=== PATIENT | female | born 1985 | race African-American/Black ===

== ENCOUNTER 2016-06-19 00:08 | Emergency (ER) | payer SELFPAY ==
[2016-01-10 10:44] VITALS: BP 159/101
[~2016-06-19] VITALS: Ht 167.6 cm; Wt 136.1 kg
[~2016-06-19 00:08] MED LIST: AMOX1TAB61 PO
[2016-06-19] MEDS ORDERED: CYCL10TA2 PO (00:44)
[2016-06-19] MEDS ORDERED: HYDR-971 PO (00:44)
--- NOTE | 2016-06-19 00:44 | PHYS DOC ---
Past Medical History Past Medical History: No Pertinent History Past Surgical History: Other Additional Past Surgical Histo: SPLEENECTOMY Alcohol Use: None Drug Use: None Adult General Chief Complaint Chief Complaint: BACK PAIN OR INJURY HPI HPI Patient is a 30 year old female who presents with moderate left low back pain radiating to the left lower extremity that began 3 days ago after she moved a TV. Patient denies any loss of bowel bladder function. Denies any numbness or tingling to bilateral lower extremities. Patient denies any urgency frequency or dysuria. Review of Systems Review of Systems Constitutional: Denies fever or chills [] Eyes: Denies change in visual acuity, redness, or eye pain [] : Denies dysuria or hematuria [] Musculoskeletal: Left low back pain Integument: Denies rash or skin lesions [] Neurologic: Denies headache, focal weakness or sensory changes [] Endocrine: Denies polyuria or polydipsia [] Allergies Allergies Allergies Coded Allergies Type Severity Reaction Last Updated Verified ibuprofen Allergy Unknown 06/09/15 Yes Physical Exam Physical Exam Constitutional: Well developed, well nourished, no acute distress, non-toxic appearance. [] Abdomen: Bowel sounds normal, soft, no tenderness, no masses, no pulsatile masses. [] Skin: Warm, dry, no erythema, no rash. [] Back: Overweight patient. Diffuse tenderness paraspinal muscles of the left lower lumbar region worse on the left SI joint, no midline tenderness, no CVA tenderness. Positive left leg straight raises, negative right leg straight raises. Extremities: No tenderness, no cyanosis, no clubbing, ROM intact, no edema. [] Neurologic: Alert and oriented X 3, normal motor function, normal sensory function, no focal deficits noted. [] Psychologic: Affect normal, judgement normal, mood normal. [] EKG EKG [] Radiology/Procedures Radiology/Procedures [] Course & Med Decision Making Course & Med Decision Making Pertinent Labs and Imaging studies reviewed. (See chart for details) Patient is in the ED with left low back pain radiating to the left lower extremity that began 3 days ago after moving a TV. She does not have any loss of bowel/bladder function. Her pain is very muscle skeletal most likely lumbar strain. She was discharged with pain medicine. Heat recommended to her back. Follow-up with her own PCP in one week. She is provided return precautions and discharged in stable condition. Leroy Weinerimer Dragon Disclaimer This electronic medical record was generated, in whole or in part, using a voice recognition dictation system. Departure Departure Impression: Primary Impression: Lumbosacral strain Additional Impression: Sciatica of left side Disposition: HOME, SELF-CARE Condition: STABLE Referrals: NO PCP (PCP) Follow-up with your own doctor in one week Patient Instructions: Lumbosacral Strain, Sciatica with [facility] Additional Instructions: You were seen for strain of the lumbar spine. Avoid lifting anything heavy for the next 7 days. Apply heat or ice to the low back. Take the prescribed medicines as ordered. Come back to the emergency room for any concerning or worsening symptoms. Follow-up with your own doctor in one week. Scripts Cyclobenzaprine Hcl 10 Mg Tablet1 Tab PO TID #30 TAB Prov:KALEB GALVAN APRN 06/19/16 Hydrocodone/Apap 5-325 (Max 5-325 Tablet)1 Each Tablet1-2 Tab PO Q4-6HRS #20 TAB Prov:KALEB GALVAN APRN 06/19/16 Problem Qualifiers Primary Impression: Lumbosacral strain Encounter type: initial encounter Qualified Code: S39.012A - Strain of muscle, fascia and tendon of lower back, initial encounter KALEB GALVAN APRN Jun 19, 2016 00:44
[2016-06-19] MEDS ORDERED: CYCLOBENZAPRINE 10 MG TABLET. PO ONE (00:45)
[2016-06-19] MEDS ORDERED: HYDROCODONE/APAP 5/325MG TABLET. PO ONE (00:45)
== END 2016-06-19 00:50 | disposition home or self-care (01) ==
LOC: ER 00:08
DX: S39.012A Strain of muscle, fascia and tendon of lower back, initial encounter (principal); M54.32 Sciatica, left side; Z88.6 Allergy status to analgesic agent; X58.XXXA Exposure to other specified factors, initial encounter; Y93.89 Activity, other specified; Y99.8 Other external cause status; Y92.89 Other specified places as the place of occurrence of the external cause
CPT/HCPCS: 99283

== ENCOUNTER 2017-06-23 00:02 | Emergency (ER) | payer SELFPAY | END 2017-06-23 01:02 | disposition home or self-care (01) | LOC: ER 00:02 | DX: S93.402A Sprain of unspecified ligament of left ankle, initial encounter (principal); I10 Essential (primary) hypertension; Z88.6 Allergy status to analgesic agent; X58.XXXA Exposure to other specified factors, initial encounter; Y93.01 Activity, walking, marching and hiking; Y92.69 Other specified industrial and construction area as the place of occurrence of the external cause; Y99.8 Other external cause status | CPT/HCPCS: 73610; 99284 ==

== ENCOUNTER 2017-10-16 23:01 | Emergency (ER) | payer SELFPAY ==
[2017-10-16] MEDS: KETOROLAC 30 MG/ML INJ. IV (23:45)
[2017-10-16] MEDS: IV NORMAL SALINE 1000ML BAG 1,000 ML IV (23:45)
[2017-10-16 23:55] LABS: URINE HCG POC HCG NEGATIVE (Negative)
[2017-10-17] LABS: BILIRUBIN,URINE NEGATIVE (NEG); CLARITY,URINE CLEAR; COLOR,URINE YELLOW; GLUCOSE,URINE NEGATIVE (NEG); NITRITE,URINE NEGATIVE (NEG); PH,URINE 5.5; PROTEIN,URINE NEGATIVE (NEG-TRACE); UROBILINOGEN,URINE 0.2 mg/dL (0.2 mg/dL)
[2017-10-17 00:10] LABS: BACTERIA,URINE FEW /HPF (0-FEW); RBC,URINE OCC /HPF (0-2); SQUAMOUS EPITHELIAL CELL,UR FEW /LPF; WBC,URINE OCC /HPF (0-4)
[2017-10-17] MEDS: KETOROLAC 60 MG/2 ML INJ. IM (00:39)
== END 2017-10-17 00:45 | disposition home or self-care (01) ==
LOC: ER 10-17 00:45
DX: R10.9 Unspecified abdominal pain (principal); R11.2 Nausea with vomiting, unspecified; I10 Essential (primary) hypertension; E66.01 Morbid (severe) obesity due to excess calories; Z68.42 Body mass index [BMI] 45.0-49.9, adult; Z88.6 Allergy status to analgesic agent
CPT/HCPCS: 74176; 81001; 81025; 96372; 99285-25; J1885

== ENCOUNTER 2018-08-23 10:27 | Emergency (ER) | payer SELFPAY ==
[~2018-08-23] VITALS: Ht 167.6 cm; Wt 136.1 kg
[~2018-08-23 10:27] MED LIST changes: +CYCL10TA2 PO; +HYDR-3164 PO; +NAPR-514 PO
[2018-08-23] MEDS ORDERED: HYDROcodone/APAP 5/325MG 1 TAB TABLET PO ONE (11:30)
[2018-08-23] MEDS ORDERED: diazePAM 5 MG TABLET PO ONE (11:30)
[2018-08-23] MEDS ORDERED: cloNIDine HCL 0.1 MG TABLET PO ONE (11:30)
--- NOTE | 2018-08-23 11:56 | PHYS DOC ---
Past Medical History Past Medical History: Hypertension, Other Additional Past Medical Histor: tbi Past Surgical History: Other Additional Past Surgical Histo: SPLEENECTOMY, l shoulder Alcohol Use: None Drug Use: None Adult General Chief Complaint Chief Complaint: LOWER BACK PAIN OR INJURY HPI HPI Patient is a 32 year old female with a history of obesity, hypertension, who presents to the ED today complaining of 10 out of 10 left-sided back pain that has been going on since yesterday, patient states she believes she slept wrong. Patient states the pain is exacerbated by movements to the left side. Denies anything specifically relieving the pain. She states she has not tried anything specifically for this pain. She is also complaining of a headache rated at 10 out of 10 but not the worst headache in her life, she states this headache has been going on for the last 1 month. She states she has history of migraine headaches. She also has history of hypertension and states has not taken her medications for "years". Patient denies any chest pain or shortness of breath. Denies anything relieving or exacerbating the headache. She states she does not have insurance has no PCP has never follows up with anyone for high blood pressure. Review of Systems Review of Systems Constitutional: Denies fever or chills [] Eyes: Denies change in visual acuity, redness, or eye pain [] HENT: Denies nasal congestion or sore throat [] Respiratory: Denies cough or shortness of breath [] Cardiovascular: No additional information not addressed in HPI [] GI: Denies abdominal pain, nausea, vomiting, bloody stools or diarrhea [] : Denies dysuria or hematuria [] Musculoskeletal: Reports left-sided pain Integument: Denies rash or skin lesions [] Neurologic: Reports headache, denies focal weakness or sensory changes [] All other systems were reviewed and found to be within normal limits, except as documented in this note. Current Medications Current Medications Current Medications Medications (Trade) Dose Ordered Sig/Fermin Start Time Stop Time Status Last Admin Dose Admin Acetaminophen/ Hydrocodone Bitart (Lortab 5/325) 2 tab 1X ONCE 08/23/18 11:30 08/23/18 11:34 DC 08/23/18 11:47 2 TAB Clonidine HCl (Catapres) 0.1 mg 1X ONCE 08/23/18 11:30 08/23/18 11:34 DC 08/23/18 11:46 0.1 MG Diazepam (Valium) 5 mg 1X ONCE 08/23/18 11:30 08/23/18 11:34 DC 08/23/18 11:43 5 MG Allergies Allergies Allergies Coded Allergies Type Severity Reaction Last Updated Verified ibuprofen Adverse Reaction Mild UPSET STOMACH 10/16/17 Yes Physical Exam Physical Exam Constitutional: Morbidly obese patient. Well developed, well nourished, no acute distress, non-toxic appearance. [] HENT: Normocephalic, atraumatic, bilateral external ears normal, oropharynx moist, no oral exudates, nose normal. [] Eyes: PERRLA, EOMI, conjunctiva normal, no discharge. [] Neck: Normal range of motion, no tenderness, supple, no stridor. [] Cardiovascular:Heart rate regular rhythm, no murmur [] Lungs & Thorax: Bilateral breath sounds clear to auscultation [] Abdomen: Bowel sounds normal, soft, no tenderness, no masses, no pulsatile masses. [] Skin: Warm, dry, no erythema, no rash. [] Back: No tenderness, no CVA tenderness. [] Extremities: No tenderness, no cyanosis, no clubbing, ROM intact, no edema. [] Neurologic: Alert and oriented X 3, normal motor function, normal sensory function, no focal deficits noted. Cranial nerves II through XII intact Psychologic: Affect normal, judgement normal, mood normal. [] Current Patient Data Vital Signs Vital Signs Date Time Temp Pulse Resp B/P (MAP) Pulse Ox O2 Delivery O2 Flow Rate FiO2 08/23/18 12:14 73 16 175/117 (136) 100 Room Air 08/23/18 11:30 97.9 97.9 EKG EKG [] Radiology/Procedures Radiology/Procedures [] Course & Med Decision Making Course & Med Decision Making Pertinent Labs and Imaging studies reviewed. (See chart for details) This is a 32-year-old female patient presenting to the ED today complaining of pain to her left side of the body that has been going on since yesterday, she believes she slept wrong. Patient is in no distress. She is also complaining of a headache, she believes is a migraine headache, has history of hypertension that is uncontrolled, blood pressure not arrival 173/119 with a heart rate of 84. Discussed with patient blood pressure management. She states she would like to be restarted back on her blood pressure medication. She was started on HCTZ and she is morbidly obese, recommended she tries to diet and exercise and lose some weight. She was discharged with diclofenac and cyclobenzaprine for pain. Provided a clinic list for follow-up. Leroy Disclaimer Makon Disclaimer This electronic medical record was generated, in whole or in part, using a voice recognition dictation system. Departure Departure Impression: Primary Impression: Musculoskeletal pain Additional Impressions: Hypertension Headache Disposition: HOME, SELF-CARE Condition: STABLE Referrals: NO PCP (PCP) follow up with a doctor from the list provided Patient Instructions: Headache, FAQs, Hypertension Additional Instructions: You were evaluated in the emergency room, your blood pressure was elevated, you have history of high blood pressure. Please establish care with one of the doctors from the list provided and follow-up. We put you on hydrochlorothiazide. Take it as prescribed. Consider losing weight, watch your diet and avoid eating fatty salty foods. Scripts Ondansetron (ONDANSETRON ODT) 4 Mg Tab.rapdis 1 TAB PO PRN Q6-8HRS, #16 TAB Prov: KLAEB GALVAN APRN 08/23/18 Diclofenac Sodium (DICLOFENAC SODIUM) 50 Mg Tablet.dr 1 TAB PO BID, #20 TAB 0 Refills Prov: KALEB GALVAN APRN 08/23/18 Hydrochlorothiazide (HYDROCHLOROTHIAZIDE TABLET) 12.5 Mg Tablet 12.5 MG PO DAILY for DIURETIC, #20 TAB 0 Refills Prov: KALEB GALVAN APRN 08/23/18 Cyclobenzaprine Hcl (CYCLOBENZAPRINE HCL) 10 Mg Tablet 1 TAB PO TID, #30 TAB Prov: KALEB GALVAN APRN 08/23/18 Problem Qualifiers Additional Impressions: Hypertension Hypertension type: unspecified Qualified Codes: I10 - Essential (primary) hypertension Headache Headache type: unspecified Headache chronicity pattern: unspecified pattern Intractability: not intractable Qualified Codes: R51 - Headache COLEKALEB APRN Aug 23, 2018 11:56
[2018-08-23] MEDS ORDERED: ONDA4TAB12 PO (12:50)
[2018-08-23] MEDS ORDERED: CYCL10TA2 PO (12:50)
[2018-08-23] MEDS ORDERED: DICL50TA4 PO (12:50)
[2018-08-23] MEDS ORDERED: HYDR12.58 PO (12:50)
[2018-08-23 13:09] VITALS: BP 163/101
== END 2018-08-23 13:09 | disposition home or self-care (01) ==
LOC: ER 10:27
DX: I10 Essential (primary) hypertension (principal); R51 Headache; M79.18 Myalgia, other site; Z88.8 Allergy status to other drugs, medicaments and biological substances; Z90.81 Acquired absence of spleen
CPT/HCPCS: 99284

== ENCOUNTER 2019-09-29 08:21 | Emergency (ER) | payer SELFPAY ==
[~2019-09-29] VITALS: Ht 170.2 cm; Wt 140.0 kg
[~2019-09-29 08:21] MED LIST changes: +DICL50TA4 PO; +HYDR12.58 PO; +ONDA4TAB12 PO
--- NOTE | 2019-09-29 08:46 | PHYS DOC ---
Past Medical History Past Medical History: Hypertension, Other Additional Past Medical Histor: tbi Past Surgical History: Other Additional Past Surgical Histo: SPLEENECTOMY, l shoulder Smoking Status: Current Every Day Smoker Alcohol Use: None Drug Use: None General Adult EDM: Chief Complaint: ABDOMINAL PAIN HPI: HPI: Patient is a 33-year-old obese female who presents with a complaint of low abdominal pain and cramping. She states it feels like her menstrual period. She also has dysuria as well. She denies any fever chills or sweats. She is had no nausea or vomiting. No diarrhea. She states the pain is localized to her lower abdomen feels like cramping and she says it is worse when she lays down. [] Review of Systems: Review of Systems: Constitutional: Denies fever or chills. [] Eyes: Denies change in visual acuity. [] HENT: Denies nasal congestion or sore throat. [] Respiratory: Denies cough or shortness of breath. [] Cardiovascular: Denies chest pain or edema. [] GI: Per HPI [] : Reports dysuria. [] Musculoskeletal: Denies back pain or joint pain. [] Integument: Denies rash. [] Neurologic: Denies headache, focal weakness or sensory changes. [] Endocrine: Denies polyuria or polydipsia. [] Lymphatic: Denies swollen glands. [] Psychiatric: Denies depression or anxiety. [] Heart Score: Risk Factors: Risk Factors: DM, Current or recent (<one month) smoker, HTN, HLP, family history of CAD, obesity. Risk Scores: Score 0 - 3: 2.5% MACE over next 6 weeks - Discharge Home Score 4 - 6: 20.3% MACE over next 6 weeks - Admit for Clinical Observation Score 7 - 10: 72.7% MACE over next 6 weeks - Early Invasive Strategies Allergies: Allergies: Allergies Coded Allergies Type Severity Reaction Last Updated Verified ibuprofen Adverse Reaction Mild UPSET STOMACH 10/16/17 Yes Physical Exam: PE: Constitutional: Well developed, well nourished, no acute distress, non-toxic appearance. [] HENT: Normocephalic, atraumatic, bilateral external ears normal, oropharynx moist, no oral exudates, nose normal. [] Eyes: PERRLA, EOMI, conjunctiva normal, no discharge. [] Neck: Normal range of motion, no tenderness, supple, no stridor. [] Cardiovascular:Heart rate regular rhythm, no murmur [] Lungs & Thorax: Bilateral breath sounds clear to auscultation [] Abdomen: Bowel sounds normal, soft, no tenderness, no masses, no pulsatile masses. [] Skin: Warm, dry, no erythema, no rash. [] Back: No tenderness, no CVA tenderness. [] Extremities: No tenderness, no cyanosis, no clubbing, ROM intact, no edema. [] Neurologic: Alert and oriented X 3, normal motor function, normal sensory function, no focal deficits noted. [] Psychologic: Affect normal, judgement normal, mood normal. [] Current Patient Data: Labs: Laboratory Tests Test 09/29/19 08:39 POC Urine HCG, Qualitative Hcg negative (Negative) EKG: EKG: [] Radiology/Procedures: Radiology/Procedures: []PROCEDURE: CT ABD PELV W/ IV CONTRST ONLY CT abdomen and pelvis with contrast History: Abdominal pain Technique: After the administration of intravenous contrast, CT imaging was performed of the abdomen and pelvis. No oral contrast was given as per request. Multiplanar images are reviewed. Exposure: One or more of the following individualized dose reduction techniques were utilized for this examination: 1. Automated exposure control 2. Adjustment of the mA and/or kV according to patient size 3. Use of iterative reconstruction technique. Comparison: October 17, 2017 Findings: Visualized heart is enlarged. There is air-fluid level of the distal esophagus, present previously. There is again inferior vena cava filter. Both kidneys enhance, no hydronephrosis of either kidney. There are probably some tiny superior left renal calculi up to about 2 mm. Gallbladder is present without obvious intraluminal abnormality by CT. No new focal abnormality is identified of the liver or pancreas. 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 Appendix caliber is upper limits of normal at 6 mm although unchanged, no adjacent inflammatory change. There are some nonspecific air-fluid levels in the small bowel most notable of the left abdomen. There is variable small bowel wall thickening including of the more distal small bowel. Bowel is not significantly dilated. There is no free air. There is trace dependent free fluid in the right pelvis. There is multilevel lumbar degenerative disc disease. There is mild S-shaped scoliosis of the thoracolumbar spine. Impression: 1. There is variable small bowel wall thickening and air-fluid levels, evidence of enteritis. There is no CT evidence of acute appendicitis. 2. There are some small nonobstructive left renal calculi superiorly. 3. Heart is enlarged. Course & Med Decision Making: Course & Med Decision Making Pertinent Labs and Imaging studies reviewed. (See chart for details) [ED course: Evaluation reveals an obese 33-year-old female with lower abdominal discomfort. CT scan showed mild enteritis nothing emergent for sure. She was given IV fluids Toradol and some fentanyl with improvement in her symptoms. I will give her some naproxen to take at home. I have encouraged her to follow with her primary care physician.] Leroy Disclaimer: Leroy Disclaimer: This electronic medical record was generated, in whole or in part, using a voice recognition dictation system. Departure Departure Impression: Primary Impression: Abdominal pain Qualified Codes: R10.30 - Lower abdominal pain, unspecified Disposition: HOME, SELF-CARE Condition: IMPROVED Referrals: NO PCP (PCP) Patient Instructions: Abdominal Pain (Nonspecific) Additional Instructions: Return to the emergency department with any new or concerning symptoms Scripts Naproxen (NAPROXEN) 500 Mg Tablet 1 TAB PO BID PRN for PAIN, #30 TAB 1 Refill Prov: WILLIAM GROSS DO 09/29/19 WILLIAM GROSS DO September 29, 2019 08:46
[2019-09-29 09:07] LABS: BILIRUBIN,URINE NEGATIVE (NEG); CLARITY,URINE CLEAR; COLOR,URINE YELLOW; NITRITE,URINE NEGATIVE (NEG); PH,URINE 5.5 (<5.0-8.0); UROBILINOGEN,URINE 0.2 mg/dL (0.2 mg/dL)
[2019-09-29 09:27] LABS: RBC,URINE 0 /HPF (0-2)
[2019-09-29 09:28] LABS: BACTERIA,URINE 0 /HPF (0-FEW); HYALINE CASTS, URINE FEW /HPF; SQUAMOUS EPITHELIAL CELL,UR MOD /LPF; WBC,URINE OCC /HPF (0-4)
[2019-09-29] MEDS ORDERED: KETOROLAC 60 MG/2 ML VIAL. IM ONE (09:30)
[2019-09-29 09:36] LABS: PROTEIN,URINE 100 mg/dL (NEG-TRACE)
[2019-09-29] MEDS ORDERED: IV NORMAL SALINE 1000ML BAG 1,000 ML IV ONE (10:00)
[2019-09-29] MEDS ORDERED: ONDANSETRON PF 4 MG/2 ML VIAL. IV ONE (10:00)
[2019-09-29] MEDS ORDERED: fentaNYL PF VIAL 100 MCG/2 ML VIAL IV ONE (10:00)
[2019-09-29 10:31] LABS: BASO % 0 % (0-3); EOS # 0.1 x10^3/uL (0.0-0.7); EOS % 1 % (0-3); HEMATOCRIT 47.9 % (36.0-47.0); HEMOGLOBIN 16.5 g/dL (12.0-15.5); LYMPH # 1.4 x10^3/uL (1.0-4.8); LYMPH % 14 % (24-48); MEAN CORPUSCULAR HEMOGLOBIN 30 pg (25-35); MEAN CORPUSCULAR HGB CONC 35 g/dL (31-37); MEAN CORPUSCULAR VOLUME 87 fL (79-100); MONO # 0.8 x10^3/uL (0.0-1.1); MONO % 8 % (0-9); NEUT # 7.8 x10^3/uL (1.8-7.7); NEUT % 77 % (31-73); PLATELET COUNT 444 x10^3/uL (140-400); RED BLOOD COUNT 5.49 x10^6/uL (3.50-5.40); WHITE BLOOD COUNT 10.1 x10^3/uL (4.0-11.0)
[2019-09-29 10:58] LABS: CALCIUM 8.5 mg/dL (8.5-10.1); GFR 76.8; POTASSIUM 3.8 mmol/L (3.5-5.1)
[2019-09-29 11:04] LABS: ALBUMIN 3.3 g/dL (3.4-5.0); ALBUMIN/GLOBULIN RATIO 0.7 (1.0-1.7); TOTAL BILIRUBIN 1.2 mg/dL (0.2-1.0); TOTAL PROTEIN 8.1 g/dL (6.4-8.2)
[2019-09-29] MEDS ORDERED: IOHEXOL 300 MG/ML 100ML VIAL. IV ONE (11:30)
[2019-09-29] MEDS ORDERED: CONTRAST GIVEN. MC PRN (11:30)
--- NOTE | 2019-09-29 11:59 | RAD ---
CT abdomen and pelvis with contrast History: Abdominal pain Technique: After the administration of intravenous contrast, CT imaging was performed of the abdomen and pelvis. No oral contrast was given as per request. Multiplanar images are reviewed. Exposure: One or more of the following individualized dose reduction techniques were utilized for this examination: 1. Automated exposure control 2. Adjustment of the mA and/or kV according to patient size 3. Use of iterative reconstruction technique. Comparison: October 17, 2017 Findings: Visualized heart is enlarged. There is air-fluid level of the distal esophagus, present previously. There is again inferior vena cava filter. Both kidneys enhance, no hydronephrosis of either kidney. There are probably some tiny superior left renal calculi up to about 2 mm. Gallbladder is present without obvious intraluminal abnormality by CT. No new focal abnormality is identified of the liver or pancreas. 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 Appendix caliber is upper limits of normal at 6 mm although unchanged, no adjacent inflammatory change. There are some nonspecific air-fluid levels in the small bowel most notable of the left abdomen. There is variable small bowel wall thickening including of the more distal small bowel. Bowel is not significantly dilated. There is no free air. There is trace dependent free fluid in the right pelvis. There is multilevel lumbar degenerative disc disease. There is mild S-shaped scoliosis of the thoracolumbar spine. Impression: 1. There is variable small bowel wall thickening and air-fluid levels, evidence of enteritis. There is no CT evidence of acute appendicitis. 2. There are some small nonobstructive left renal calculi superiorly. 3. Heart is enlarged. Electronically signed by: Sudhir Saxena MD (09/29/2019 11:57 AM) [id number]
[2019-09-29 12:02] VITALS: BP 168/99
[2019-09-29] MEDS ORDERED: NAPR-514 PO (12:28)
== END 2019-09-29 12:39 | disposition home or self-care (01) ==
LOC: ER 08:21
DX: R10.30 Lower abdominal pain, unspecified (principal); R30.0 Dysuria; I10 Essential (primary) hypertension; F17.200 Nicotine dependence, unspecified, uncomplicated; Z88.8 Allergy status to other drugs, medicaments and biological substances
CPT/HCPCS: 36415; 74177; 80053; 81001; 81025; 83690; 85025; 96372; 96374; 96375; 99285; J1885; J2405; J3010; J7030; Q9967

== ENCOUNTER 2020-06-10 02:20 | Emergency (ER) | payer SELFPAY ==
[~2020-06-10] VITALS: Ht 170.2 cm; Wt 159.1 kg
[2020-06-10] MEDS ORDERED: CEPH500T PO (02:42)
--- NOTE | 2020-06-10 02:42 | PHYS DOC ---
Past Medical History Past Medical History: Hypertension, Other Additional Past Medical Histor: tbi Past Surgical History: Other Additional Past Surgical Histo: SPLEENECTOMY, l shoulder Smoking Status: Current Every Day Smoker Alcohol Use: Occasionally Drug Use: None General Adult EDM: Chief Complaint: INSECT BITE HPI: HPI: Patient is a 34 year old female who presented to ER for evaluation of an insect bite to the right hand she noted yesterday.. Patient says she woke up from sleep yesterday, noted a small lesion on her right hand, tender to touch, she suspected that something bit her on the right hand. Patient denies any fever. Patient denies any fall. Review of Systems: Review of Systems: Constitutional: Denies fever or chills. [] Eyes: Denies change in visual acuity. [] HENT: Denies nasal congestion or sore throat. [] Respiratory: Denies cough or shortness of breath. [] Cardiovascular: Denies chest pain or edema. [] GI: Denies abdominal pain, nausea, vomiting, bloody stools or diarrhea. [] : Denies dysuria. [] Musculoskeletal: Denies back pain or joint pain. [] Integument: positive for rash Neurologic: Denies headache, focal weakness or sensory changes. [] Endocrine: Denies polyuria or polydipsia. [] Lymphatic: Denies swollen glands. [] Psychiatric: Denies depression or anxiety. [] Heart Score: Risk Factors: Risk Factors: DM, Current or recent (<one month) smoker, HTN, HLP, family history of CAD, obesity. Risk Scores: Score 0 - 3: 2.5% MACE over next 6 weeks - Discharge Home Score 4 - 6: 20.3% MACE over next 6 weeks - Admit for Clinical Observation Score 7 - 10: 72.7% MACE over next 6 weeks - Early Invasive Strategies Current Medications: Current Medications Medications (Trade) Dose Ordered Sig/Fermin Start Time Stop Time Status Last Admin Dose Admin Cephalexin HCl (Keflex) 1,000 mg 1X ONCE 06/10/20 03:00 06/10/20 03:01 Allergies: Allergies: Allergies Coded Allergies Type Severity Reaction Last Updated Verified ibuprofen Adverse Reaction Mild UPSET STOMACH 10/16/17 Yes Physical Exam: PE: Constitutional: Well developed, well nourished, no acute distress, non-toxic appearance. [] Skin: Warm, dry, There is small skin lesion on right hand at the webspace between thumb and index finger.No swelling. . [] ] Extremities: No tenderness, no cyanosis, no clubbing, ROM intact, no edema. [] Neurologic: Alert and oriented X 3, normal motor function, normal sensory function, no focal deficits noted. [] Psychologic: Affect normal, judgement normal, mood normal. [] EKG: EKG: [] Radiology/Procedures: Radiology/Procedures: [] Course & Med Decision Making: Course & Med Decision Making Pertinent Labs and Imaging studies reviewed. (See chart for details) [] Dragon Disclaimer: Dragon Disclaimer: This electronic medical record was generated, in whole or in part, using a voice recognition dictation system. Departure Departure Impression: Primary Impression: Insect bite Additional Impression: Insect bite of right hand Disposition: 01 DC HOME SELF CARE/HOMELESS Condition: STABLE Referrals: NO PCP (PCP) follow up with your doctor on Thursday for reevaluation Patient Instructions: Insect Bite Additional Instructions: Thank you for visiting our Emergency Department. We appreciate you trusting us with your care. If any additional problems come up don't hesitate to return to visit us. Please follow up with your primary care provider so they can plan additional care if needed and know about the problem that you had. If symptoms worsen come back to the Emergency Department. Any concerning symptoms that start such as chest pain, shortness of air, weakness or numbness on one side of the body, running high fevers or any other concerning symptoms return to the ER. Scripts Cephalexin (CEPHALEXIN) 500 Mg Tablet 1 TAB PO QID for 7 Days, #28 TAB Prov: SMITHA COX DO 06/10/20 SMITHA COX DO Jun 10, 2020 02:42
[2020-06-10 03:00] VITALS: BP 169/79
[2020-06-10] MEDS ORDERED: CEPHALEXIN 250 MG CAPSULE. PO ONE (03:00)
== END 2020-06-10 03:06 | disposition home or self-care (01) ==
LOC: ER 02:20
DX: S60.561A Insect bite (nonvenomous) of right hand, initial encounter (principal); I10 Essential (primary) hypertension; F17.200 Nicotine dependence, unspecified, uncomplicated; Z98.890 Other specified postprocedural states; Z90.89 Acquired absence of other organs; Z88.8 Allergy status to other drugs, medicaments and biological substances; W57.XXXA Bitten or stung by nonvenomous insect and other nonvenomous arthropods, initial encounter; Y93.89 Activity, other specified; Y92.89 Other specified places as the place of occurrence of the external cause; Y99.8 Other external cause status
CPT/HCPCS: 99283

== ENCOUNTER 2020-12-13 11:55 | Emergency (ER) | payer SELFPAY ==
[~2020-12-13] VITALS: Ht 170.2 cm; Wt 136.3 kg
[~2020-12-13 11:55] MED LIST changes: +CEPH500T PO
[2020-12-13 12:07] VITALS: BP 197/104
[2020-12-13] MEDS ORDERED: HYDROcodone/APAP 5/325MG 1 TAB TABLET PO ONE (12:15)
[2020-12-13] MEDS ORDERED: predniSONE 20 MG TABLET PO ONE (12:15)
[2020-12-13] MEDS ORDERED: CYCLOBENZAPRINE 10 MG TABLET. PO ONE (12:15)
--- NOTE | 2020-12-13 12:45 | RAD ---
EXAM: Pelvis and right hip, 3 views. HISTORY: Pain. COMPARISON: None. FINDINGS: 3 views of the right hip and pelvis are obtained. There is no fracture, dislocation or subl uxation. The femoral heads are normal in configuration. There is advanced degenerative change involvi ng the lower lumbar spine, not formally assessed on this exam. IMPRESSION: No acute osseous finding. Electronically signed by: Roslyn Maxwell MD (12/13/2020 12:42 PM) [id number]
--- NOTE | 2020-12-13 12:48 | PHYS DOC ---
Past Medical History Past Medical History: Hypertension, Other Additional Past Medical Histor: tbi Past Surgical History: Splenectomy Additional Past Surgical Histo: SPLEENECTOMY, l shoulder Smoking Status: Current Every Day Smoker Alcohol Use: None Drug Use: None General Adult EDM: Chief Complaint: HIP PAIN HPI: HPI: Patient is a 35 year old female with history of hypertension presenting today complaining of 11 out of 10 sharp constant right hip pain that began this morning after she got up. Patient denies any injuries. States the pain is worse on certain movements, and certain sitting positions. Denies anything specifically relieving the pain. Review of Systems: Review of Systems: Constitutional: Denies fever or chills. [] Musculoskeletal: Reports right hip pain. Denies back pain or joint pain. [] Integument: Denies rash. [] Neurologic: Denies headache, focal weakness or sensory changes. [] Psychiatric: Denies depression or anxiety. [] Heart Score: C/O Chest Pain: N/A Risk Factors: Risk Factors: DM, Current or recent (<one month) smoker, HTN, HLP, family history of CAD, obesity. Risk Scores: Score 0 - 3: 2.5% MACE over next 6 weeks - Discharge Home Score 4 - 6: 20.3% MACE over next 6 weeks - Admit for Clinical Observation Score 7 - 10: 72.7% MACE over next 6 weeks - Early Invasive Strategies Current Medications: Current Medications Medications (Trade) Dose Ordered Sig/Fermin Start Time Stop Time Status Last Admin Dose Admin Acetaminophen/ Hydrocodone Bitart (Lortab 5/325) 2 tab 1X ONCE 12/13/20 12:15 12/13/20 12:21 DC 12/13/20 12:42 2 TAB Cyclobenzaprine HCl (Flexeril) 10 mg 1X ONCE 12/13/20 12:15 12/13/20 12:21 DC 12/13/20 12:39 10 MG Prednisone (Prednisone) 60 mg 1X ONCE 12/13/20 12:15 12/13/20 12:21 DC 12/13/20 12:43 20 MG Allergies: Allergies: Allergies Coded Allergies Type Severity Reaction Last Updated Verified ibuprofen Adverse Reaction Mild UPSET STOMACH 10/16/17 Yes Physical Exam: PE: Constitutional: Well developed, well nourished, no acute distress, non-toxic appearance. [] Skin: Warm, dry, no erythema, no rash. [] Back: No tenderness, no CVA tenderness. [] Extremities: Obese patient, tenderness on palpation of the right lateral hip, limited range of motion to the right hip due to pain as well as weight. Full range of motion to the right toes. +2 right pedal pulse. Cap refill less than 2 seconds to the right lower extremity. Sensation intact to the right lower extremity Neurologic: Alert and oriented X 3, normal motor function, normal sensory function, no focal deficits noted. [] Psychologic: Affect normal, judgement normal, mood normal. [] Current Patient Data: Vital Signs: Vital Signs Date Time Temp Pulse Resp B/P (MAP) Pulse Ox O2 Delivery O2 Flow Rate FiO2 12/13/20 12:42 20 12/13/20 12:07 98.1 78 197/104 98 Room Air 98.1 EKG: EKG: [] Radiology/Procedures: Radiology/Procedures: []PROCEDURE: HIP RIGHT 2V WITH PELVIS EXAM: Pelvis and right hip, 3 views. HISTORY: Pain. COMPARISON: None. FINDINGS: 3 views of the right hip and pelvis are obtained. There is no fracture, dislocation or subluxation. The femoral heads are normal in configuration. There is advanced degenerative change involving the lower lumbar spine, not formally assessed on this exam. IMPRESSION: No acute osseous finding. Electronically signed by: Roslyn Maxwell MD (12/13/2020 12:42 PM) [id number] DICTATED and SIGNED BY: ROSLYN MAXWELL MD DATE: 12/13/20 [id number] Course & Med Decision Making: Course & Med Decision Making Pertinent Labs and Imaging studies reviewed. (See chart for details) This is a 35-year-old female presenting to the ED today complaining of right hip pain, no known injury. Right hip x-rays including pelvis interpreted by radiologist are negative for any acute findings. Provided Ortho for follow-up. Provided return precautions and discharged in stable condition Leroy Disclaimer: Leroy Disclaimer: This electronic medical record was generated, in whole or in part, using a voice recognition dictation system. Departure Departure Impression: Primary Impression: Right hip pain Disposition: HOME / SELF CARE / HOMELESS Condition: STABLE Referrals: NO PCP (PCP) GEOFF ISBELL DO Follow-up in 1 week Patient Instructions: Hip Pain Additional Instructions: You were seen for right hip pain, your right hip x-rays were negative for any acute findings. You can use ice or heat to your hip. We encourage you to try and get up and ambulate as much as he can. We encourage you to follow-up with your primary care doctor or the provided orthopedic doctor in 1 week Scripts Hydrocodone Bit/Acetaminophen (HYDROCODONE-APAP 5-325 ) 1 Tab Tablet 1 TAB PO PRN Q6HRS PRN for PAIN, #10 TAB 0 Refills Prov: KALEB GALVAN APRN 12/13/20 Cyclobenzaprine Hcl (CYCLOBENZAPRINE HCL) 10 Mg Tablet 1 TAB PO TID, #90 TAB Prov: KALEB GALVAN APRN 12/13/20 KALEB GALVAN APRN Dec 13, 2020 12:48
[2020-12-13] MEDS ORDERED: HYDR-2761 PO (13:09)
[2020-12-13] MEDS ORDERED: CYCL10TA2 PO (13:09)
== END 2020-12-13 14:08 | disposition home or self-care (01) ==
LOC: ER 11:55
DX: M25.551 Pain in right hip (principal); I10 Essential (primary) hypertension; F17.200 Nicotine dependence, unspecified, uncomplicated; Z90.81 Acquired absence of spleen; Z88.8 Allergy status to other drugs, medicaments and biological substances
CPT/HCPCS: 73502; 99284; J7512